=== PATIENT | female | born 1985 | race Two or more races ===

== ENCOUNTER 2017-08-12 11:00 | Inpatient (IN) | payer OTHER ==
[~2017-08-12] VITALS: Ht 152.4 cm; Wt 63.0 kg
[2017-08-12] MEDS ORDERED: SYNTHROID50 MCG PO (13:17)
[2017-08-24] MEDS ORDERED: CODE1TAB37 PO (06:49)
[2017-08-24] MEDS ORDERED: POLY119PG PO (06:49)
== END 2017-08-24 09:07 | disposition home or self-care (01) | DRG 743 ==
LOC: OB/GYN 08-22 05:15 → O/R 08-22 05:15 → SURG 08-22 11:00 → OB/GYN 08-22 17:26
PROVIDERS: Obstetrics & Gynecology
PROC: 0UB90ZZ Excision of Uterus, Open Approach (ICD-10-PCS; 2017-08-22)
PROC: 0UB10ZZ Excision of Left Ovary, Open Approach (ICD-10-PCS; principal; 2017-08-22 14:00)
DX: N80.1 Endometriosis of ovary (principal); D25.9 Leiomyoma of uterus, unspecified

== ENCOUNTER 2024-05-22 19:14 | Emergency (ER) | payer OTHER ==
[~2024-05-22] VITALS: Ht 157.5 cm; Wt 68.0 kg
[~2024-05-22 19:14] MED LIST: CODE1TAB37 PO; GABAPENTIN300 MG PO; GABAPENTIN600 MG; GABAPENTIN600 MG PO; IBU800 MG; IBU800 MG PO; IBUPROFEN800 MG PO; MEGESTROL ACETA40 MG; NEURONTIN300 MG PO; POLY119PG PO; SIMETHICONE125 M1 PO; SIMETHICONE80 MG PO; SYNTHROID100 MCG PO; SYNTHROID50 MCG PO
[2024-05-22] MEDS ORDERED: MORPHINE SULFATE 4 MG/ML VIAL IV ONE (20:00)
[2024-05-22 20:40] LABS: HEMATOCRIT 37.3 % (36.0-45.00); HEMOGLOBIN 12.6 g/dL (12.0-15.00); MEAN CELL VOLUME 89.8 fL (80.00-100.00); MEAN CORPUSCULAR HEMOGLOBIN 30.4 pg (27.00-32.0); MEAN CORPUSCULAR HGB CONC 33.9 g/dl (32.0-36.0); PLATELET COUNT 330 K/uL (150-450); RED BLOOD COUNT 4.15 M/uL (4.00-6.00); RED CELL DISTRIBUTION WIDTH 13.3 % (11.5-14.5)
[2024-05-22 21:13] LABS: PH,URINE 5.5 (5.0-8.0); URINE APPEARANCE Clear; URINE BILIRRUBIN Negative (NEGATIVE); URINE BLOOD Negative; URINE COLOR Yellow; URINE GLUCOSE Negative (NEGATIVE); URINE KETONE Negative (NEGATIVE); URINE LEUKOCYTE Negative; URINE NITRATE Negative; URINE PROTEIN Negative (NEGATIVE); URINE UROBILINOGEN 0.2 E.U./dl
[2024-05-22 21:16] LABS: URINE BACTERIA 4.8 uL (0.0-1933); URINE EPITHELIAL CELLS 9.6 uL (0.0-38.8); URINE RBC 5.8 uL (0.0-20.8)
[2024-05-22 21:21] LABS: URINE CAST 0.29 uL (0.0-1.40)
[2024-05-22 21:30] LABS: CALCIUM 9.6 mg/dL (8.5-10.1); CREATININE SERUM 0.66 mg/dL (0.55-1.02); GFR 99.19; POTASSIUM 3.78 mEq/L (3.5-5.1)
== END 2024-05-22 23:32 | disposition home or self-care (01) ==
LOC: ER 19:16
PROVIDERS: Emergency Medicine
DX: N20.0 Calculus of kidney (principal); R10.9 Unspecified abdominal pain; E03.8 Other specified hypothyroidism
CPT/HCPCS: 36415; 74176; 96365; 99284; J2270

== ENCOUNTER 2024-08-09 15:03 | Emergency (ER) | payer OTHER ==
[~2024-08-09] VITALS: Ht 154.9 cm; Wt 67.6 kg
[2024-08-09] MEDS ORDERED: 0.9 % SODIUM CHLORIDE 1,000 ML IV SCH (16:30)
[2024-08-09] MEDS ORDERED: KETOROLAC TROMETHAMINE 30 MG VIAL IV ONE (16:30)
[2024-08-09] MEDS ORDERED: KETOROLAC TROMETHAMINE 30 MG VIAL ONE (16:34)
[2024-08-09] MEDS ORDERED: BARIUM SULFATE 450 ML ORAL.SUSP PO ONE (16:43)
[2024-08-09 17:17] LABS: BASO % 0.3 % (0.1-1.2); EOS # 0.15 (0.04-0.54); EOS % 1.5 % (0.7-7.0); HEMATOCRIT 35.9 % (34.1-44.9); LYMPH # 3.05 (1.18-3.74); LYMPH % 30.5 % (19.3-53.1); MEAN CORPUSCULAR HEMOGLOBIN 29.9 pg (25.6-32.2); MONO # 0.98 (0.24-0.82); MONO % 9.8 % (4.7-12.5); NEUT # 5.74 (1.56-6.13); NEUT % 57.5 % (34.0-71.1); PLATELET COUNT 337 K/uL (163-369); RED BLOOD COUNT 4.02 M/uL (3.93-5.22); RED CELL DISTRIBUTION WIDTH 11.7 % (11.6-14.4)
[2024-08-09 17:49] LABS: ALBUMIN 3.8 gm/dL (3.4-5.0); BILIRUBIN TOTAL 0.25 mg/dL (0.3-1.2); CREATININE SERUM 0.64 mg/dL (0.55-1.02); GFR 102.78; GLOBULINA 3.8 G/DL (2.4-3.5); POTASSIUM 3.88 mEq/L (3.5-5.1); TOTAL PROTEIN 7.6 gm/dL (6.4-8.2)
[2024-08-09 19:06] LABS: PH,URINE 6.5 (5.0-8.0); URINE APPEARANCE Cloudy; URINE BILIRRUBIN Negative (NEGATIVE); URINE BLOOD Small; URINE COLOR Yellow; URINE GLUCOSE Negative (NEGATIVE); URINE KETONE Negative (NEGATIVE); URINE LEUKOCYTE Trace; URINE NITRATE Negative; URINE PROTEIN Trace (NEGATIVE); URINE UROBILINOGEN 0.2 E.U./dl
[2024-08-09 19:11] LABS: URINE BACTERIA 178.6 uL (0.0-1933); URINE EPITHELIAL CELLS 81.6 uL (0.0-38.8); URINE RBC 14.8 uL (0.0-20.8); URINE WBC 13.4 uL (0.0-23.2)
[2024-08-09 19:13] LABS: URINE CAST 0.58 uL (0.0-1.40)
[2024-08-09] MEDS ORDERED: FAMOTIDINE/PF 20 MG in 0.9 % SODIUM CHLORIDE 8 ML IV PUSH STA (19:53)
[2024-08-09] MEDS ORDERED: FAMOTIDINE/PF 20 MG/2 ML VIAL ONE (19:56)
[2024-08-09] MEDS ORDERED: KETO10TA2 PO (21:32)
== END 2024-08-09 21:56 | disposition home or self-care (01) ==
LOC: ER 15:03
PROVIDERS: General Practice
DX: R10.32 Left lower quadrant pain (principal)
CPT/HCPCS: 36415; 74177; 76830; Q9965

== ENCOUNTER → 2025-03-03 | Emergency (ER) | payer OTHER ==
[~2025-03-03] VITALS: Ht 154.9 cm; Wt 62.6 kg
[~2025-03-03] MED LIST changes: +CEFTRIAXONE SODIUM 1,000 MG VIAL IV ONE; +CEFTRIAXONE SODIUM 1,000 MG VIAL ONE; +FAMOTIDINE/PF 20 MG/2 ML VIAL IV ONE; +FAMOTIDINE/PF 20 MG/2 ML VIAL ONE; +KETO10TA2 PO; +KETOROLAC TROMETHAMINE 30 MG VIAL IV ONE; +KETOROLAC TROMETHAMINE 30 MG VIAL ONE
[2025-03-03 21:27] VITALS: BP 136/68; O2SAT 98
[2025-03-04 01:48] LABS: BASO % 0.4 % (0.1-1.2); EOS # 0.21 (0.04-0.54); EOS % 1.9 % (0.7-7.0); LYMPH # 3.70 (1.18-3.74); LYMPH % 32.7 % (19.3-53.1); MEAN PLATELET VOLUME 9.90 fl (9.4-12.4); MONO # 0.94 (0.24-0.82); MONO % 8.3 % (4.7-12.5); NEUT # 6.40 (1.56-6.13); NEUT % 56.4 % (34.0-71.1); RED CELL DISTRIBUTION WIDTH 12.3 % (11.6-14.4)
[2025-03-04 01:59] LABS: ALT/SGPT 20.0 U/L (12-78); AST/SGOT 13.0 U/L (15-37); BILIRUBIN TOTAL 0.22 mg/dL (0.3-1.2); BUN CREA RATIO 23.0 (7.0-25.0); CREATININE SERUM 0.6 mg/dL (0.55-1.02); GFR 110.72; GLOBULINA 3.7 G/DL (2.4-3.5); GLUCOSE FASTING 97.0 mg/dL (65-100); OSMOLALITY SERUM 284.0 MOSM/KG (275-295)
[2025-03-04 02:00] LABS: ERYTHROCYTE SEDIMENTATION RATE 26 mm/hr (0-20)
[2025-03-04 03:41] LABS: URINE BILIRRUBIN NEGATIVE (NEGATIVE); URINE BLOOD NEGATIVE; URINE GLUCOSE NEGATIVE (NEGATIVE); URINE KETONE NEGATIVE (NEGATIVE); URINE LEUKOCYTE NEGATIVE; URINE NITRATE NEGATIVE; URINE PROTEIN NEGATIVE (NEGATIVE); URINE UROBILINOGEN 0.2 E.U./dl
[2025-03-04 03:49] LABS: URINE APPEARANCE CLEAR; URINE COLOR YELLOW
[2025-03-04 03:50] LABS: URINE BACTERIA MODERATE; URINE CRYSTALS FEW /HPF; URINE EPITHELIAL CELLS 0-4 /HPF; URINE RBC NONE SEEN /HPF; URINE WBC NONE SEEN /hpf
== END | disposition home or self-care (01) ==
LOC: ER 20:27
PROVIDERS: Student in an Organized Health Care Education/Training Program
DX: N94.89 Other specified conditions associated with female genital organs and menstrual cycle (principal); R10.20 Pelvic and perineal pain unspecified side; R10.9 Unspecified abdominal pain; E03.8 Other specified hypothyroidism; N39.0 Urinary tract infection, site not specified; M25.552 Pain in left hip
CPT/HCPCS: 36415; 73560; 74177; 76856; Q9965